=== PATIENT | male | born 1940 | race Caucasian/White ===

== ENCOUNTER 2021-11-28 15:37 | Inpatient (IN) | payer MEDICARE, BC ==
[2021-11-28] MEDS ORDERED: Azithromycin 500 MG in Sodium Chloride 0.9% 250 ML IV ONE (17:53)
[2021-11-28] MEDS ORDERED: cefTRIAXone 2 GM Vial IVPUSH ONE (17:53)
[2021-11-28 18:23] LABS: CORONAVIRUS COVID-19 NAA POSITIVE (NEGATIVE)
[2021-11-28] MEDS ORDERED: Sodium Chloride 0.9% 250 ML IV ONE (19:16)
[2021-11-28] MEDS ORDERED: Iopamidol 755 Mg/ML 100 ML Bottle IV ONE (19:56)
[2021-11-28] MEDS: Simvastatin 40 MG Tab PO SCH (21:55)
[2021-11-28] MEDS: Enoxaparin 40 MG/0.4 ML Syringe SUBCUT SCH (21:55)
[2021-11-28] MEDS: Terazosin 5 MG Cap PO SCH (21:56)
[2021-11-29] MEDS: Pantoprazole 40 MG Tab.CR PO SCH (05:57)
[2021-11-29] MEDS: Metoprolol Succinate 25 MG Tab.ER PO SCH (08:27)
[2021-11-29] MEDS: Aspirin 81 MG Tab.Chew PO SCH (08:27)
[2021-11-29] MEDS: Allopurinol 100 MG Tab PO SCH (08:29)
[2021-11-29] MEDS: Enoxaparin 40 MG/0.4 ML Syringe SUBCUT SCH (08:30)
[2021-11-29] MEDS: Chlorthalidone 25 MG Tab PO SCH (08:53)
[2021-11-29] MEDS: Losartan 100 MG Tab PO SCH (08:54)
[2021-11-29] MEDS ORDERED: Dexamethasone 4 MG/ML 5 ML MDV IVPUSH ONE (09:13)
[2021-11-29] MEDS: Dexamethasone 4 MG/ML 5 ML MDV IVPUSH SCH (10:12)
[2021-11-29] MEDS: Sodium Chloride 0.9% 10 ML Syringe FLUSH PRN ×2 (10:23→18:11)
[2021-11-29] MEDS ORDERED: cefTRIAXone 1 GM Vial IVPUSH SCH (18:15)
[2021-11-29] MEDS ORDERED: Azithromycin 500 MG in Sodium Chloride 0.9% 250 ML IV SCH (18:15)
[2021-11-29] MEDS: Simvastatin 40 MG Tab PO SCH (20:30)
[2021-11-29] MEDS: Terazosin 5 MG Cap PO SCH (20:30)
[2021-11-30] MEDS: Pantoprazole 40 MG Tab.CR PO SCH (05:31)
[2021-11-30] MEDS: Chlorthalidone 25 MG Tab PO SCH (09:23)
[2021-11-30] MEDS: Losartan 100 MG Tab PO SCH (09:24)
[2021-11-30] MEDS: Dexamethasone 4 MG/ML 5 ML MDV IVPUSH SCH (09:26)
[2021-11-30] MEDS: Metoprolol Succinate 25 MG Tab.ER PO SCH (09:59)
[2021-11-30] MEDS: Aspirin 81 MG Tab.Chew PO SCH (09:59)
[2021-11-30] MEDS: Allopurinol 100 MG Tab PO SCH (10:00)
[2021-11-30] MEDS: Enoxaparin 40 MG/0.4 ML Syringe SUBCUT SCH (10:00)
[2021-11-30] MEDS: Sodium Chloride 0.9% 10 ML Syringe FLUSH PRN (10:05)
== END 2021-11-30 13:15 | disposition home or self-care (01) | DRG 177 ==
LOC: FB.ED 15:37 → FB.MS 20:50
PROVIDERS: ADMIT Family Medicine; ATTEND Family Medicine
PROC: 3E0333Z Introduction of Anti-inflammatory into Peripheral Vein, Percutaneous Approach (ICD-10-PCS; principal; 2021-11-28)
DX: J18.9 Pneumonia, unspecified organism (principal); U07.1 COVID-19; J12.82 Pneumonia due to coronavirus disease 2019; E87.1 Hypo-osmolality and hyponatremia; I13.0 Hypertensive heart and chronic kidney disease with heart failure and stage 1 through stage 4 chronic kidney disease, or unspecified chronic kidney disease; N18.31 Chronic kidney disease, stage 3a; R79.89 Other specified abnormal findings of blood chemistry; I25.10 Atherosclerotic heart disease of native coronary artery without angina pectoris; E78.00 Pure hypercholesterolemia, unspecified; I50.9 Heart failure, unspecified; N40.0 Benign prostatic hyperplasia without lower urinary tract symptoms; M10.9 Gout, unspecified; Z86.010 Personal history of colon polyps; Z79.82 Long term (current) use of aspirin; Z79.899 Other long term (current) drug therapy
CPT/HCPCS: 0240U; 36415; 71046; 71275; 80048; 80053; 81001; 83605; 83880; 84484; 85025; 85379; 85651; 86140; 87040; 93005; 93010; 99222; 99238; 99284; 99285-25; A9270-GY; J0456; J0696; J1100; J1650; J3490; J7040; J7050; Q9967

== ENCOUNTER 2023-04-26 17:12 | Emergency (ER) | payer MEDICARE, BC ==
[2023-04-26] MEDS ORDERED: Sodium Chloride 0.9% 1,000 ML IV ONE ×2 (17:19→18:40)
[2023-04-26 18:02] LABS: BLOOD UREA NITROGEN,BUN 29 mg/dL (7-18); BUN/CREATININE RATIO 17.1 (9-20); CALCIUM 8.3 mg/dL (8.6-10.2); CARBON DIOXIDE,CO2 21 mmol/L (21-32); CHLORIDE,CL 102 mmol/L (100-110); CREATININE 1.7 mg/dL (0.70-1.30); ESTIMATED GFR 39 mL/min (>60); GLUCOSE RANDOM 108 mg/dL (80-116); POTASSIUM,K 4.4 mmol/L (3.5-5.3); SODIUM,NA 137 mmol/L (135-145)
[2023-04-26 18:09] LABS: A/G RATIO 1.3; ALANINE AMINOTRANSFERASE,ALT 32 U/L (12-36); ALBUMIN 3.9 g/dL (3.2-4.6); ALKALINE PHOSPHATASE 81 IU/L (56-112); ASPARTATE AMNIOTRANSFERASE,AST 21 IU/L (5-25); BILIRUBIN TOTAL 1.1 mg/dL (0.1-1.3); C-REACTIVE PROTEIN 1.1 mg/dL (<0.33); PROTEIN TOTAL,TP 6.9 g/dL (6.0-8.0); TROPONIN I 14.8 pg/mL (4.0-60.3)
[2023-04-26 18:10] LABS: HEMATOCRIT 44.6 % (38.3-50.1); HEMOGLOBIN 15.1 g/dL (12.9-17.7); MEAN CORPUSCULAR HEMOGLOBIN 32.6 pg (27.0-33.3); MEAN CORPUSCULAR HGB CONC 33.8 g/dL (28.7-35.3); MEAN CORPUSCULAR VOLUME 96.3 fL (80.8-98.7); PLATELET COUNT,PLT 200 x10(3)uL (117-477); RED BLOOD CELL COUNT 4.63 x10(6)uL (3.90-5.90); RED CELL DISTRIBUTION WIDTH 14.2 % (12.4-15.0); WHITE BLOOD CELL COUNT,WBC 13.4 x10-3/uL (3.2-10.1)
[2023-04-26 18:38] LABS: EOSINOPHILS PERCENT MAN 4 % (0-5); LYMPHOCYTES PERCENT MAN 7 % (13-37); MONOCYTES PERCENT MAN 3 % (4-12); SEG NEUTROPHILS PERCENT MAN 86 % (46-82)
[2023-04-26 19:45] LABS: BILIRUBIN,URINE SMALL (NEGATIVE); GLUCOSE,URINE NORMAL (NORMAL); KETONES,URINE 15 mg/dL (NEGATIVE); LEUKOCYTE ESTERASE,URINE NEGATIVE (NEGATIVE); NITRITE,URINE NEGATIVE (NEGATIVE); OCCULT BLOOD,URINE NEGATIVE (NEGATIVE); PROTEIN,URINE TRACE mg/dL (NEGATIVE); UROBILINOGEN,URINE NORMAL (NEGATIVE)
[2023-04-26 19:48] LABS: APPEARANCE,URINE CLEAR (CLEAR); BACTERIA,URINE RARE (NS); CALCIUM OXALATE CRYSTALS,URINE FEW (NS); COLOR,URINE YELLOW (YELLOW); RBC,URINE 0-5 (0-5); SQUAMOUS EPITHELIAL CELLS,UR OCCASIONAL (NS,R,O); WBC,URINE 0-5 (0-5)
== END 2023-04-26 21:07 | disposition home or self-care (01) ==
LOC: FB.ED 17:12
DX: E86.0 Dehydration (principal); N17.9 Acute kidney failure, unspecified; I13.0 Hypertensive heart and chronic kidney disease with heart failure and stage 1 through stage 4 chronic kidney disease, or unspecified chronic kidney disease; I50.9 Heart failure, unspecified; N18.31 Chronic kidney disease, stage 3a; E78.00 Pure hypercholesterolemia, unspecified; E87.20 Acidosis, unspecified; N40.0 Benign prostatic hyperplasia without lower urinary tract symptoms; M10.9 Gout, unspecified; I25.10 Atherosclerotic heart disease of native coronary artery without angina pectoris; Z86.16 Personal history of COVID-19; Z79.82 Long term (current) use of aspirin; Z79.899 Other long term (current) drug therapy; Z20.822 Contact with and (suspected) exposure to COVID-19
CPT/HCPCS: 36415; 71045; 80053; 80307; 81001; 83605; 84484; 85025; 86140; 93005; 96360; 96361; 99285; J7030; U0002

== ENCOUNTER 2025-05-05 10:09 | Emergency (ER) | payer MEDICARE, BC ==
[2025-05-05] MEDS ORDERED: Sodium Chloride 0.9% 10 ML Syringe FLUSH PRN (10:31)
[2025-05-05 10:53] LABS: BASOPHILS ABSOLUTE AUTO 0.0 x10-3/uL (0.0-0.3); BASOPHILS PERCENT AUTO 0.3 % (0.3-3.8); EOSINOPHILS ABSOLUTE AUTO 0.1 x10-3/uL (0.0-0.6); EOSINOPHILS PERCENT AUTO 0.7 % (0.1-6.8); LYMPHOCYTES ABSOLUTE AUTO 0.9 x10-3/uL (0.5-4.5); LYMPHOCYTES PERCENT AUTO 7.8 % (15.8-45.3); MEAN PLATELET VOLUME 6.6 fL (6.7-11.0); MONOCYTES ABSOLUTE AUTO 1.0 x10-3/uL (0.0-1.2); MONOCYTES PERCENT AUTO 9.1 % (5.5-15.2); NEUTROPHILS ABSOLUTE AUTO 9.1 x10-3/uL (1.7-6.9); NEUTROPHILS PERCENT AUTO 82.1 % (40.3-71.8); PLATELET COUNT,PLT 336 x10(3)uL (117-477); RED BLOOD CELL COUNT 4.03 x10(6)uL (3.90-5.90); RED CELL DISTRIBUTION WIDTH 14.4 % (12.4-15.0); WHITE BLOOD CELL COUNT,WBC 11.1 x10-3/uL (3.2-10.1)
[2025-05-05 11:07] LABS: LACTIC ACID 1.2 mmol/L (0.4-2.0)
[2025-05-05 11:14] LABS: A/G RATIO 0.8; ALANINE AMINOTRANSFERASE,ALT 73 U/L (12-36); ASPARTATE AMNIOTRANSFERASE,AST 58 IU/L (5-25); BILIRUBIN TOTAL 0.9 mg/dL (0.1-1.3); BLOOD UREA NITROGEN,BUN 37 mg/dL (7-18); CARBON DIOXIDE,CO2 28 mmol/L (21-32); CHLORIDE,CL 95 mmol/L (100-110); CREATININE 1.9 mg/dL (0.70-1.30); EST CRCL DRUG DOSING (CG) 27.91 mL/min; ESTIMATED GFR 34 mL/min (>60); GLUCOSE RANDOM 128 mg/dL (80-116); POTASSIUM,K 4.0 mmol/L (3.5-5.3); PROTEIN TOTAL,TP 6.6 g/dL (6.0-8.0); SODIUM,NA 131 mmol/L (135-145)
[2025-05-05 14:07] LABS: APPEARANCE,URINE CLEAR (CLEAR); GLUCOSE,URINE NORMAL (NORMAL); OCCULT BLOOD,URINE NEGATIVE (NEGATIVE)
== END 2025-05-05 12:40 | disposition home or self-care (01) ==
LOC: FB.ED 10:09
DX: R55 Syncope and collapse (principal); E87.1 Hypo-osmolality and hyponatremia; E86.0 Dehydration; I25.10 Atherosclerotic heart disease of native coronary artery without angina pectoris; I12.9 Hypertensive chronic kidney disease with stage 1 through stage 4 chronic kidney disease, or unspecified chronic kidney disease; N18.9 Chronic kidney disease, unspecified; E78.00 Pure hypercholesterolemia, unspecified; E66.9 Obesity, unspecified; Z79.82 Long term (current) use of aspirin; Z79.899 Other long term (current) drug therapy; Z68.32 Body mass index [BMI] 32.0-32.9, adult
CPT/HCPCS: 36415; 80053; 81003; 83605; 84484; 85025; 86140; 93005; 96360; 96361; 99285; J7030